=== PATIENT | male | born 1940 | race Caucasian/White ===

== ENCOUNTER 2017-01-31 17:21 | Emergency (ER) | payer OTHER ==
[~2017-01-31] VITALS: Ht 170.2 cm; Wt 45.8 kg
--- NOTE | 2017-01-31 17:44 | NUR ---
PT DENIES TAKING ANY MEDICATIONS.
[2017-01-31] MEDS ORDERED: TDAP DIPH,PERTUSS,TET VAC/PF 0.5 ML DISP.SYRIN IM ONE ×2 (17:45→18:07)
[2017-01-31] MEDS ORDERED: IV NORMAL SALINE 1000 ML BAG IV ONE (17:45)
[2017-01-31] MEDS ORDERED: HALOPERIDOL LACTATE 5 MG/1 ML VIAL IM ONE (17:45)
[2017-01-31 17:53] LABS: CARBON DIOXIDE 29 mmol/L (21-32); CHLORIDE 104 mmol/L (98-107); CREATININE 0.9 mg/dL (0.6-1.3); GLUCOSE 98 mg/dL (74-106); POTASSIUM 4.1 mmol/L (3.5-5.1); UREA NITROGEN, BLOOD 8 mg/dL (7-18)
[2017-01-31 17:54] LABS: BASOPHILS # (AUTO) 0.1 K/uL (0.0-8.0); BASOPHILS % (AUTO) 1.2 % (0.0-2.0); EOSINOPHILS # (AUTO) 0.1 K/uL (0.0-0.7); EOSINOPHILS % (AUTO) 1.3 % (0.0-7.0); HEMATOCRIT 36.9 % (40-50); HEMOGLOBIN 12.3 G/DL (14.0-18.0); LYMPHOCYTES # (AUTO) 1.4 K/UL (0.8-4.8); LYMPHOCYTES % (AUTO) 18.9 % (20.5-51.5); MEAN CORPUSCULAR HEMOGLOBIN 33.6 UUG (27.0-31.0); MEAN CORPUSCULAR HGB CONC 33 g/dL (32.0-37.0); MEAN CORPUSCULAR VOLUME 101.1 FL (82.0-92.0); MONOCYTES # (AUTO) 0.5 K/UL (0.1-1.30); MONOCYTES % (AUTO) 6.9 % (0.0-11.0); NEUTROPHILS # (AUTO) 5.3 K/UL (1.8-8.9); NEUTROPHILS % (AUTO) 71.7 % (38.5-71.5); PLATELET COUNT (AUTO) 191 K/UL (150-450); RED BLOOD CELL COUNT(AUTO) 3.65 MIL/UL (4.7-6.1); WHITE BLOOD COUNT (AUTO) 7.4 K/UL (4.0-11.2)
[2017-01-31] MEDS ORDERED: HALOPERIDOL LACTATE 5 MG/1 ML VIAL ONE (17:56)
[2017-01-31 17:59] LABS: ALANINE AMINOTRANSFERASE 20 U/L (16-63); ALKALINE PHOSPHATASE 54 U/L (50-136); ASPARTATE AMINOTRANSFERASE 29 U/L (15-37); BILIRUBIN,DIRECT 0.1 mg/dL (0.0-0.2); BILIRUBIN,TOTAL 0.3 mg/dL (0.2-1.0)
[2017-01-31] MEDS ORDERED: HALOPERIDOL LACTATE 5 MG/1 ML VIAL IV ONE (18:00)
--- NOTE | 2017-01-31 18:22 | NUR ---
pt returned from ct scan, face/wounds cleaned, tdap im admin, p[resently dr donovan suturing wounds. 1 l 0.9ns bolus infusing.
--- NOTE | 2017-01-31 18:48 | NUR ---
dr donovan completed sutures/steri-strips , face claened, pt positioned for comfort.
--- NOTE | 2017-01-31 19:02 | NUR ---
sbar report to jami norman. pt resting,.
--- NOTE | 2017-01-31 19:31 | NUR ---
Patient talorated dinner with no N/V noted
--- NOTE | 2017-01-31 21:04 | NUR ---
Patient discharged to home in stable conditon. Written and verbal after care instructions given. Patient verbalizes understanding of instructions. TAXI VOUCHER OBTAINED FOR PT, PT WALKED OUT er unassisted with belongings at side...
[2017-01-31 21:12] VITALS: BP 145/97
== END 2017-01-31 21:12 | disposition home or self-care (01) ==
LOC: ER 17:22
DX: S01.81XA Laceration without foreign body of other part of head, initial encounter (principal); S01.21XA Laceration without foreign body of nose, initial encounter; F10.129 Alcohol abuse with intoxication, unspecified; W01.0XXA Fall on same level from slipping, tripping and stumbling without subsequent striking against object, initial encounter; Y93.89 Activity, other specified; Y92.9 Unspecified place or not applicable; Y99.9 Unspecified external cause status
CPT/HCPCS: 36415; 70450; 70486; 72125; 73560; 85025; 85730; 90715; 93005; A4217; A4663; G0480; J1630; J3490; J7030